=== PATIENT | female | born 1995 | race African-American/Black ===

== ENCOUNTER 2017-11-29 21:39 | Emergency (ER) | payer SELFPAY ==
[~2017-11-29] VITALS: Ht 172.7 cm; Wt 71.0 kg
[2017-11-29 22:04] VITALS: BP 121/59; PULSE 85; RESP 16; TEMP 98.7; O2SAT 100
--- NOTE | 2017-11-29 22:57 | PD ---
HPI Chief Complaint: Bite or Sting Time Seen by Provider: 22:49 Travel History International Travel<30 days: No Contact w/Intl Traveler<30days: No Traveled to known affect area: No History of Present Illness HPI 23-year-old female presents emergency department for possible insect bites. Patient states that she is not sure whether she had been bitten by a spider. She has an area on her left thigh in her posterior left ankle. There are mildly pruritic. She had noticed some nausea over the last day or 2. She has had no fever chills. No shortness of breath or wheezing. History Past Medical Histgory Narrative Medical Allergies Tetanus Vaccination: > 5 Years LMP: 11/08/17 Past Surgical History Surgical History: No Previous Surgery Social History Alcohol Use: No Tobacco Use: Yes Allergies-Medications (Allergen,Severity, Reaction): Coded Allergies: No Known Drug Allergies (Verified Allergy, Unknown, 11/29/17) Review of Systems General / Constitutional: No: Fever Eyes: No: Visual changes HENT: No: Headaches Cardiovascular: No: Chest Pain or Discomfort Respiratory: No: Shortness of Breath Gastrointestinal: Positive: Nausea, No: Vomiting, Diarrhea, Abdominal Pain Genitourinary: No: Dysuria, Discharge Musculoskeletal: No: Pain Skin: Positive Rash, Positive Itching, Positive Lesions, No Hives Neurologic: No: Weakness Psychiatric: No: Depression Endocrine: No: Polydipsia Hematologic/Lymphatic: No: Easy Bruising Physical Exam Narrative GENERAL: Well-developed, well-nourished in no acute distress. Nontoxic appearing. HEAD: Normocephalic, atraumatic. EYES: Pupils equal round and reactive. Extraocular motions intact. No scleral icterus. No injection or drainage. ENT: TMs clear without erythema. The external auditory canals clear. Nose: clear . Posterior pharynx is pink and moist. No tonsillar edema or exudate. Uvula midline. Airway patent. NECK: Trachea midline.Supple, nontender, moves head freely. No central bony tenderness or spasm. CARDIOVASCULAR: Regular rate and rhythm without murmurs, gallops, or rubs. RESPIRATORY: Clear to auscultation. Breath sounds equal bilaterally. No wheezes , rales, or rhonchi. GASTROINTESTINAL: Abdomen soft, non-tender, nondistended. No hepato-splenomegaly , or palpable masses. No guarding. EXTREMITIES: No clubbing, cyanosis, or edema. No joint tenderness, effusion, or edema noted. BACK: Nontender without deformity or crepitance. No flank tenderness. Skin: Patient has a 1.5 cm slightly indurated papular lesion to the left anterior proximal thigh. Patient also has a 1 cm excoriated scabbed area to the posterior left Achilles area. No signs of any secondary infection. No drainage. Data Data Last Documented VS Vital Signs Date Time Temp Pulse Resp B/P (MAP) Pulse Ox O2 Delivery O2 Flow Rate FiO2 11/29/17 22:04 98.7 85 16 121/59 (79) 100 MDM Medical Screen Exam Complete: Yes Emergency Medical Condition: No Differential Diagnosis MDM: High Differential diagnoses: Abscess, folliculitis, cellulitis, lymphangitis, abrasion, contact dermatitis, insect bite Narrative Course A medical screening exam was performed: At the time of evaluation the presenting medical condition was determined not to be of an emergent nature. The patient was given the option of receiving additional care, but declined. Patient was given options for additional community resources from which to obtain care. The Patient Has Been advised to seek medical attention for their presenting complaint. The patient has been advised to return to the ER at any time if an emergent condition develops. Primary Impression: Encounter for medical screening examination Condition: Pierce Tate Nov 29, 2017 22:57
== END 2017-11-29 22:55 | disposition left against medical advice (07) ==
LOC: NEPD 21:39
DX: L29.9 Pruritus, unspecified (principal); R11.0 Nausea; Z72.0 Tobacco use
CPT/HCPCS: 99281